=== PATIENT | female | born 1955 | race Caucasian/White ===

== ENCOUNTER 2020-03-27 11:28 | Inpatient (IN) | payer OTHER ==
[2020-03-27 12:23] LABS: Actual Bicarbonate (HCO3a) 22.1 mEq/L (22-28); Analyzer IN Cardio ER; Base Excess (BEa) -5.9 mEq/L (-2.0 to +3.0); CO2 Tension 57.1 mmHg (35.0-45.0); Calcium, Ionized (arterial) 1.09 mmol/L (1.12-1.30); Carboxyhemoglobin (COHb) 0.8 gm% (0.0-3.0); Hemoglobin (Hb) 9.4 g/dL (12.0-16.0); O2 Tension (PaO2), arterial 99.3 mmHg (> 80.0); Potassium - ABG Lab 3.53 mmol/L (3.70-5.30)
[2020-03-27 12:26] LABS: ALV-art Gradient 86.005 mmHg (0-20); Puncture Site RRA; pH, Arterial 7.21 (7.35-7.45)
--- NOTE | 2020-03-27 12:32 | RAD ---
CHEST 1 VIEW: Date: 03/27/2020 HISTORY: Chest pain. COMPARISON: Radiograph dated 06/05/2015. FINDINGS: Heart size is mildly enlarged. No pneumothorax. No significant air space consolidation. No acute osseous abnormality. IMPRESSION: Cardiomegaly and scattered atelectatic change. No definite evidence for pneumonia. POS: [facility]
[2020-03-27 12:53] LABS: Band 8 % (5-11); Eosinophils 1 % (0-10); Hemoglobin 9.9 g/dL (12.0-16.0); Hypochromia SLIGHT = 6-15 cells (100X) (0-5/hpf); Lymphocytes 8 % (21-51); MDiff Complete? YES; Mean Corpuscular HGB CONC 34.3 g/dL (32.0-36.0); Mean Corpuscular Hemoglobin 25.3 pg (27.0-31.0); Mean Corpuscular Volume 73.8 fL (78.0-98.0); Mean Platelet Volume 10.5 fL (7.4-10.4); Metamyelocyte 1 % (0-0); Microcytosis SLIGHT = 6-15 cells (100X) (0-5/hpf); Monocytes 3 % (0-10); Neutrophil 79 % (42-75); Platelet Count 221 thou/uL (130-400); Platelet Morphology Comment Appears Adequate; Polychromasia SLIGHT = 2-3 cells (100X) (0-2/hpf); RBC Distribution Width 20.4 % (11.5-14.5); Red Blood Cell (RBC) Count 3.91 mill/uL (4.20-5.40); White Blood Cell (WBC) Count 16.2 thou/uL (4.8-10.8)
[2020-03-27 12:56] LABS: ALT (SGPT) 18 U/L (8-55); AST (SGOT) 23 U/L (5-34); Albumin 3.6 g/dL (3.4-4.8); Alkaline Phosphatase 93 U/L (40-110); Anion Gap 20 mmol/L (10-20); BUN (Urea Nitrogen) 24 mg/dL (9.8-20.1); Bilirubin, Total 0.5 mg/dL (0.2-1.2); Calc. Creatinine Clearance 0 mL/min (70-130); Calcium 8.3 mg/dL (7.8-10.44); Carbon Dioxide 19 mmol/L (23-31); Chloride 104 mmol/L (98-107); Globulin 3.3 g/dL (2.4-3.5); Glucose 132 mg/dL (80-115); Potassium 4.1 mmol/L (3.5-5.1); Protein, Total 6.9 g/dL (5.8-8.1); Sodium 139 mmol/L (136-145)
[2020-03-27] MEDS ORDERED: Cefepime 2 GM VIAL ONE (13:24)
[2020-03-27 13:39] LABS: Acetaminophen Less than 6.0 mcg/mL (10.0-30.0); Alcohol Less than 10 mg/dL (Less than 10); Salicylate Less than 8.0 mg/dL (15.0-30.0)
[2020-03-27] MEDS ORDERED: Naloxone HCl 0.4 mg/ml Vial ONE (13:44)
[2020-03-27] MEDS ORDERED: Vancomycin 1.5 GRAM/300 ML BAG 1.5 GM in Premix Bag 1 BAG IVPB SCH (13:45)
[2020-03-27] MEDS ORDERED: Norepinephrine 8 MG/0.9% NS 250 ML ONE (13:50)
[2020-03-27 13:53] LABS: Bilirubin 1+ (Negative); Blood, Urine 1+ (Negative); Clarity Turbid (Clear); Glucose, Urine (Dipstick) Normal (Negative); Ketone, Urine Negative (Negative); Leukocyte 75 Leu/uL (Negative); Nitrite Negative (Negative); Protein, Urine (Dipstick) 70 mg/dL (Neg-Trace); Specific Gravity, Urine 1.024 (1.002-1.036); Urobilinogen 3 mg/dL (Less than 2)
[2020-03-27 14:03] LABS: Bacteria/HPF 1+ HPF (None Seen); Yeast-Budding 4+ HPF (None Seen)
[2020-03-27 14:56] LABS: Medtox Reader # READER 4; THC/Cannabinoid Screen Detected (NotDetected); Tricyclic Screen Detected (NotDetected)
[2020-03-27 14:57] LABS: Amphetamine Not Detected (NotDetected); Barbiturates Screen Not Detected (NotDetected); Benzodiazepine Screen Not Detected (NotDetected); Cocaine Metabolite Screen Not Detected (NotDetected); Medtox Control Line Valid? VALID (VALID); Methadone Not Detected (NotDetected); Methamphetamine Not Detected (NotDetected); Opiate Screen Not Detected (NotDetected); Oxycodone Screen Not Detected (NotDetected); Phencyclidine (PCP) Not Detected (NotDetected)
--- NOTE | 2020-03-27 15:04 | CT ---
Exam: Head CT without contrast HISTORY: Altered mental status COMPARISON: none FINDINGS: Hemorrhage: No intraparenchymal hemorrhage or extra-axial hematoma. Brain parenchyma: Cortical cintron-white matter differentiation is preserved. No mass effect or midline shift. Basilar cisterns are patent.Minimal chronic small vessel ischemic changes of the white matter Ventricular system: Ventricles and sulci are patent and symmetric. Calvarium: Intact. 0.6 cm lucent focus in the left temporal calvarium, located within the diploic spa ce. Attenuation coefficient suggests a possible soft tissue lesion Sinuses and mastoid air cells: Adequate aeration. IMPRESSION: 1. No acute process 2. Lucent focus with soft tissue attenuation left calvarium. Etiology is uncertain. The possibility o f a small calvarial metastatic deposit cannot be excluded. Further evaluation whole-body bone scan is recommended, nonemergently
--- NOTE | 2020-03-27 15:25 | CT ---
CT of the chest, abdomen, and pelvis: 03/27/2020 COMPARISON: CT of the chest 03/18/2020 [facility], CT abdomen and pelvis 03/27/2020 HISTORY: Pneumonia, weakness, hypotension TECHNIQUE: Axial CT imaging is obtained at 5 mm intervals through the chest, abdomen, and pelvis with out contrast. Coronal and sagittal reformatted imaging obtained. FINDINGS: Partially imaged coarse calcification noted within the right lobe of the thyroid gland. Binta luation of the viscera, bowel, vascular structures, and for lymphadenopathy is limited without contrast media. The axillary, hilar, and mediastinal regions demonstrate no obvious evidence for lymphadenopathy. The re are a few nonenlarged lymph nodes in the right paratracheal region. There is atherosclerotic calcification of the coronary arteries in the aortic arch. Review of the lung parenchyma demonstrates areas of increased linear interstitial density with superi mposed areas of peripheral airspace disease most prominent within the inferior lateral aspect of the lingula, the inferior posterior aspect of the left lower lobe, and the inferior posterior aspect of the right lower lobe as well as the posterior aspect of the superior segment right lower lobe. When compared to the recent chest CT performed 03/18/2020 at [facility], the parench ymal opacities are diffusely worsened. There is no acute osseous abnormality of the chest. There is multilevel disc space narrowing and ante rior osteophyte formation within the mid and lower thoracic spine. There is prominent posterior osteophyte with associated central canal stenosis at the T10 and T11 levels. No free intraperitoneal air or fluid is seen. Limited assessment of the liver, gallbladder, spleen, p ancreas, adrenal glands, and kidneys demonstrate no acute findings. Limited assessment of the bowel demonstrates no evidence for bowel obstruction or focal bowel inflammatory change. There is multifoca l atherosclerotic calcification of the abdominal aorta and its branches, most prominent in the infrarenal region and involving the arterial structures of the pelvis, not well assessed on noncontra st enhanced imaging. Osseous structures of the abdomen/pelvis demonstrate multilevel lower lumbar spine degenerative mclaughlin e and bilateral degenerative change involving the sacroiliac joints and hips. No worrisome lytic or blastic bone lesion. There is a fatty mass within the lateral aspect of the psoas muscle on the left, best seen on axial i mage 80, measuring 1.7 x 1.7 x 4.5 cm, previously measuring 1.5 x 1.2 x 4.[address] of abdomen and pelvis performed 12/12/2018. IMPRESSION: 1. Extensive interstitial and alveolar opacity, worsened when compared to the outside chest CT, suspi cious for worsening pneumonia. This could be related to Covid pneumonia in the proper clinical setting. 2. Fatty lesion associated with the lateral aspect of the left psoas muscle which has grown slightly when compared to the prior examination. 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 Orthopedic oncology consultation is advised. These results were discussed with Dr. Pérez at 3:20 PM 03/27/2020. Code CR
[2020-03-27] MEDS ORDERED: Ondansetron PF 4 MG/2 ML Vial IVP PRN (17:35)
[2020-03-27] MEDS ORDERED: Guaifenesin DM 100-10/5 ML UDCUP PO PRN (17:35)
[2020-03-27] MEDS ORDERED: Acetaminophen 650 MG Suppository PR PRN (17:35)
[2020-03-27] MEDS ORDERED: Calcium Carbonate 500 MG ChewTAB PO PRN (17:35)
[2020-03-27] MEDS ORDERED: Ondansetron ODT 4 MG TAB PO PRN (17:35)
[2020-03-27] MEDS ORDERED: Acetaminophen 325 MG TAB PO PRN (17:35)
--- NOTE | 2020-03-27 17:39 | PDOC.HHP ---
Hospitalist HPI dyspnea History of Present Illness: Case of an 64y/o male with a pmhx of morbid obesity, sleep apnea, DM htn hypothyroidism and copd quitted smoking 1 month ago who comes to hospital due to sob and weakness. The patient was recently in [facility] for pneumonia. She was going to be discharged the next day which would have been today but she left AMA yesterday because she did not like the care that she was receiving there. The patient was discharged on oxygen 2 L. The patient's had turned it up to 6 L today. The patient had been more somnolent and so they did contact an ambulance. The patient is very somnolent and has difficulty with conversing due to this. She is unable to answer any questions at this time. Patient was hypotensive for EMS in the 80s and they did give fluid bolus. chest ct showed a pattern concerning for covid 19, hospitalist was called for further evaluation and management. during my evaluation patient had significanlty improved, she was alert ox 3 and eating, pt denies any fever chills n/v diarrhea does refer some mild sob generalize weakness and hypotension Allergies/Adverse Reactions: Allergy/AdvReac Type Severity Reaction Status Date / Time No Known Allergies Allergy Verified 05/20/19 20:23 Home Medications: Medication Instructions Recorded Confirmed Type Albuterol Sulfate [Proair HFA] 2 puff INH Q4HR PRN 12/12/18 12/12/18 History Amitriptyline HCl 25 mg PO DAILY 12/12/18 12/12/18 History Baclofen 10 mg PO BID 12/12/18 12/12/18 History Furosemide 20 mg PO DAILY 12/12/18 12/12/18 History Hydrochlorothiazide 25 mg PO DAILY 12/12/18 12/12/18 History Lisinopril 40 ng PO DAILY 12/12/18 12/12/18 History Meloxicam 15 mg PO HS 12/12/18 12/12/18 History Montelukast Sodium 10 mg PO DAILY 12/12/18 12/12/18 History Omeprazole 40 mg PO DAILY 12/12/18 12/12/18 History Sertraline HCl 100 mg PO DAILY 12/12/18 12/12/18 History Simvastatin [Zocor] 20 mg PO DAILY 12/12/18 12/12/18 History traMADol HCl [Tramadol HCl] 50 mg PO BID 12/12/18 12/12/18 History Gabapentin 1,200 mg PO TID 12/13/18 12/13/18 History Past History: PMHx: as above PSHx: c section / carpal tunnel FHx: htn Social: smoker quitted 1m/a, cannabis use, denies alcohol Hospitalist HPI ROS All other systems reviewed; all pertinent +/- noted in HPI/Subj Hospitalist Exam General Appearance: NAD, awake alert Eye: PERRL, anicteric sclera ENT: normocephalic atraumatic, no oropharyngeal lesions Neck: supple, symmetric, no JVD Heart: RRR, no murmur, no gallops Respiratory: CTAB, no wheezes, no rales Gastrointestinal: soft, non-tender, non-distended Extremities: no cyanosis, no clubbing, no edema Neurological: cranial nerve grossly intact, normal sensation to touch Musculoskeletal: normal tone, normal strength, no muscle wasting Psychiatric: normal affect, normal behavior, A&O x 3 Hospitalist Results Result Diagrams: 03/27/20 12:08 03/27/20 12:08 Lab results: Laboratory Last Values WBC 16.2 thou/uL (4.8-10.8) H 03/27/20 12:08 RBC 3.91 mill/uL (4.20-5.40) L 03/27/20 12:08 Hgb 9.9 g/dL (12.0-16.0) L 03/27/20 12:08 Hct 28.9 % (36.0-47.0) L 03/27/20 12:08 MCV 73.8 fL (78.0-98.0) L 03/27/20 12:08 MCH 25.3 pg (27.0-31.0) L 03/27/20 12:08 MCHC 34.3 g/dL (32.0-36.0) 03/27/20 12:08 RDW 20.4 % (11.5-14.5) H 03/27/20 12:08 Plt Count 221 thou/uL (130-400) 03/27/20 12:08 MPV 10.5 fL (7.4-10.4) H 03/27/20 12:08 Neutrophils % (Manual) 79 % (42-75) H 03/27/20 12:08 Band Neuts % (Manual) 8 % (5-11) 03/27/20 12:08 Lymphocytes % (Manual) 8 % (21-51) L 03/27/20 12:08 Monocytes % (Manual) 3 % (0-10) 03/27/20 12:08 Eosinophils % (Manual) 1 % (0-10) 03/27/20 12:08 Metamyelocytes % (Man) 1 % (0-0) H 03/27/20 12:08 Hypochromia SLIGHT = 6-15 cells (100X) (0-5/hpf) 03/27/20 12:08 Plt Morphology Comment Appears Adequate 03/27/20 12:08 Polychromasia SLIGHT = 2-3 cells (100X) (0-2/hpf) 03/27/20 12:08 Microcytosis SLIGHT = 6-15 cells (100X) (0-5/hpf) 03/27/20 12:08 Specimen Type ARTERIAL 03/27/20 12:20 Puncture Site RRA 03/27/20 12:20 Bicarbonate Actual 22.1 mEq/L (22-28) 03/27/20 12:20 ABG pH 7.21 (7.35-7.45) L* 03/27/20 12:20 ABG pCO2 57.1 mmHg (35.0-45.0) H 03/27/20 12:20 ABG pO2 99.3 mmHg (> 80.0) H 03/27/20 12:20 ABG O2 Sat (Measured) 95.9 % (94.0-98.0) 03/27/20 12:20 ABG O2 Content 12.7 vol% (18.0-21.0) L 03/27/20 12:20 ABG Base Excess -5.9 mEq/L (-2.0 to +3.0) L 03/27/20 12:20 ABG Hematocrit 28.0 % (36.0-47.0) L 03/27/20 12:20 ABG Hemoglobin 9.4 g/dL (12.0-16.0) L 03/27/20 12:20 ABG Oxyhemoglobin 94.5 % (94.0-98.0) 03/27/20 12:20 ABG Carboxyhemoglobin 0.8 gm% (0.0-3.0) 03/27/20 12:20 ABG Methemoglobin 0.70 gm% (0.04-1.52) 03/27/20 12:20 ABG Deoxyhemoglobin 4.0 % (0.0-2.9) H 03/27/20 12:20 Onel Test POSITIVE 03/27/20 12:20 A-a O2 Gradient 86.005 mmHg (0-20) H 03/27/20 12:20 Sodium 136 mmol/L (135-148) 03/27/20 12:20 Potassium 3.53 mmol/L (3.70-5.30) L 03/27/20 12:20 Chloride 107 mmol/L (98-106) H 03/27/20 12:20 Ionized Calcium 1.09 mmol/L (1.12-1.30) L 03/27/20 12:20 Mode of Support NC 03/27/20 12:20 Inspired O2 36 % 03/27/20 12:20 Sodium 139 mmol/L (136-145) 03/27/20 12:08 Potassium 4.1 mmol/L (3.5-5.1) 03/27/20 12:08 Chloride 104 mmol/L (98-107) 03/27/20 12:08 Carbon Dioxide 19 mmol/L (23-31) L 03/27/20 12:08 Anion Gap 20 mmol/L (10-20) 03/27/20 12:08 BUN 24 mg/dL (9.8-20.1) H 03/27/20 12:08 Creatinine 1.92 mg/dL (0.6-1.1) H 03/27/20 12:08 Estimated GFR (MDRD) 26 03/27/20 12:08 Glucose 132 mg/dL (80-115) H 03/27/20 12:08 Lactic Acid 1.6 mmol/L (0.5-2.2) 03/27/20 12:08 Calcium 8.3 mg/dL (7.8-10.44) 03/27/20 12:08 Total Bilirubin 0.5 mg/dL (0.2-1.2) 03/27/20 12:08 AST 23 U/L (5-34) 03/27/20 12:08 ALT 18 U/L (8-55) 03/27/20 12:08 Alkaline Phosphatase 93 U/L (40-110) 03/27/20 12:08 Troponin I 0.021 ng/mL (< 0.028) 03/27/20 12:08 Serum Total Protein 6.9 g/dL (5.8-8.1) 03/27/20 12:08 Albumin 3.6 g/dL (3.4-4.8) 03/27/20 12:08 Globulin 3.3 g/dL (2.4-3.5) 03/27/20 12:08 Albumin/Globulin Ratio 1.1 g/dL (1.2-2.2) L 03/27/20 12:08 Lipase 32 U/L (8-78) 03/27/20 12:04 Procalcitonin 0.18 ng/mL 03/27/20 12:05 Urine Color Yellow (Yellow) 03/27/20 13:27 Urine Clarity Turbid (Clear) A 03/27/20 13:27 Urine pH 5.0 (5.0-9.0) 03/27/20 13:27 Ur Specific [place] 1.024 (1.002-1.036) 03/27/20 13:27 Urine Protein 70 mg/dL (Neg-Trace) A 03/27/20 13:27 Urine Glucose (UA) Normal mg/dL (Negative) 03/27/20 13:27 Urine Ketones Negative mg/dL (Negative) 03/27/20 13:27 Urine Blood 1+ (Negative) A 03/27/20 13:27 Urine Nitrite Negative (Negative) 03/27/20 13:27 Urine Bilirubin 1+ (Negative) A 03/27/20 13:27 Urine Urobilinogen 3 mg/dL (Less than 2) A 03/27/20 13:27 Ur Leukocyte Esterase 75 Yudith/uL (Negative) A 03/27/20 13:27 Urine RBC 7-10 HPF (0-3) A 03/27/20 13:27 Urine WBC 7-10 HPF (0-3) A 03/27/20 13:27 Ur Squamous Epith Cells 7-10 HPF (0-3) A 03/27/20 13:27 Urine Bacteria 1+ HPF (None Seen) A 03/27/20 13:27 Granular Casts 0-3 LPF (None Seen) A 03/27/20 13:27 Urine Yeast (Budding) 4+ HPF (None Seen) A 03/27/20 13:27 Salicylates Less than 8.0 mg/dL (15.0-30.0) L 03/27/20 12:04 Urine Opiates Screen Not Detected (NotDetected) 03/27/20 13:20 Ur Oxycodone Screen Not Detected (NotDetected) 03/27/20 13:20 Urine Methadone Screen Not Detected (NotDetected) 03/27/20 13:20 Ur Propoxyphene Screen Not Detected (NotDetected) 03/27/20 13:20 Acetaminophen Less than 6.0 mcg/mL (10.0-30.0) L 03/27/20 12:04 Ur Barbiturates Screen Not Detected (NotDetected) 03/27/20 13:20 Ur Tricyclics Screen Detected (NotDetected) H 03/27/20 13:20 Ur Phencyclidine Scrn Not Detected (NotDetected) 03/27/20 13:20 Ur Amphetamines Screen Not Detected (NotDetected) 03/27/20 13:20 U Methamphetamines Scrn Not Detected (NotDetected) 03/27/20 13:20 U Benzodiazepines Scrn Not Detected (NotDetected) 03/27/20 13:20 U Cocaine Metab Screen Not Detected (NotDetected) 03/27/20 13:20 U Cannabinoids Screen Detected (NotDetected) H 03/27/20 13:20 Drug Screen Comment () 03/27/20 13:20 Plasma Alcohol Less than 10 mg/dL (Less than 10) 03/27/20 12:04 Hospitalist H&P A/P (1) Sepsis Code(s): A41.9 - SEPSIS, UNSPECIFIED ORGANISM Status: Acute (2) Pneumonia due to COVID-19 virus Code(s): U07.1 - COVID-19; J12.82 - PNEUMONIA DUE TO CORONAVIRUS DISEASE 2019 Status: Acute (3) Hypothyroidism Code(s): E03.9 - HYPOTHYROIDISM, UNSPECIFIED Status: Acute (4) Diabetes Code(s): E11.9 - TYPE 2 DIABETES MELLITUS WITHOUT COMPLICATIONS Status: Acute (5) Hypertension Code(s): I10 - ESSENTIAL (PRIMARY) HYPERTENSION Status: Acute (6) UTI (urinary tract infection) Status: Acute Qualifiers: Urinary tract infection type: acute cystitis Hematuria presence: without hematuria Qualified Code(s): N30.00 - Acute cystitis without hematuria (7) JAN (acute kidney injury) Code(s): N17.9 - ACUTE KIDNEY FAILURE, UNSPECIFIED Status: Acute (8) COPD exacerbation Code(s): J44.1 - CHRONIC OBSTRUCTIVE PULMONARY DISEASE W (ACUTE) EXACERBATION Status: Acute Plan: Case of an 64y.o female who presents with sepsis likely secondary to covid pneumonia sepsis 19 pneumonia - covid test results pending - cta concerning for covid 19 - pt w recent hospitalization for pna, left ama - will start vanc + cefepime - decadron ivd - vitmin c d zinc - isolation precaution - dvt prophylaxis - f/u inflammation markers jan - marked increase in creatinine from previous admission - will tx w ivfs 1xkg - f/u renal function and u/o htn - patient arrived hypotensive will hold for now hld - continue home meds dm - ss+acc copd exacerbaton - secondary to pna 19 - on steroids - 02 supplementation - hypercapnic, in the 60s, she does have a hx of copd and sleep apnea, this might no be far off from her base - pt seems to be back to her neurological base after sepsis tx, none the less have low threshold for starting bipap tx uti - u/a consistent with uti - f/u cultures - should be covered w current abx
[2020-03-27] MEDS ORDERED: Dextrose 5% in Water 1,000 ML IV PRN (18:45)
[2020-03-27] MEDS ORDERED: Dextrose 50% Abboject 50 ML SYRINGE SLOW IVP PRN (18:45)
[2020-03-27] MEDS: Sodium Chloride 0.9% 1,000 ML IV SCH (21:05)
[2020-03-27 22:34] LABS: SARS-CoV-2 PCR by NAA Not Detected (NotDetected)
[2020-03-28 00:22] VITALS: BMI 41.5
[2020-03-28] MEDS: Cefepime 2 GM in Sodium Chloride 0.9% 100 ML IVPB SCH ×2 (01:10→14:21)
[2020-03-28 04:39] LABS: ALT (SGPT) 13 U/L (8-55); AST (SGOT) 17 U/L (5-34); Albumin 2.9 g/dL (3.4-4.8); Alkaline Phosphatase 74 U/L (40-110); Anion Gap 14 mmol/L (10-20); BUN (Urea Nitrogen) 19 mg/dL (9.8-20.1); Bilirubin, Total 0.4 mg/dL (0.2-1.2); Calc. Creatinine Clearance 112 mL/min (70-130); Calcium 7.8 mg/dL (7.8-10.44); Carbon Dioxide 19 mmol/L (23-31); Chloride 108 mmol/L (98-107); Globulin 2.9 g/dL (2.4-3.5); Glucose 116 mg/dL (80-115); Potassium 3.9 mmol/L (3.5-5.1); Protein, Total 5.8 g/dL (5.8-8.1); Sodium 137 mmol/L (136-145)
[2020-03-28 05:32] LABS: Hemoglobin 8.7 g/dL (12.0-16.0); Mean Corpuscular HGB CONC 29.8 g/dL (32.0-36.0); Mean Corpuscular Volume 73.9 fL (78.0-98.0); Mean Platelet Volume 10.2 fL (7.4-10.4); Platelet Count 202 thou/uL (130-400); RBC Distribution Width 20.5 % (11.5-14.5); Red Blood Cell (RBC) Count 3.94 mill/uL (4.20-5.40); White Blood Cell (WBC) Count 17.2 thou/uL (4.8-10.8)
[2020-03-28] MEDS: Sodium Chloride 0.9% 1,000 ML IV SCH (06:06)
[2020-03-28] MEDS ORDERED: Non-Formulary Item 1 EACH (Albuterol Sulfate [Proair Hfa] 8.5 GM Hfa.Aer.Ad) INH PRN (08:50)
[2020-03-28] MEDS ORDERED: Fluticasone Propionate Nasal Spray 16 gm Bottle NASAL PRN (08:50)
[2020-03-28] MEDS ORDERED: Furosemide 40 MG/4 ML VIAL SLOW IVP SCH (09:00)
[2020-03-28] MEDS ORDERED: FLU VACC QS2020-21(6MOS UP)/PF 60 MCG/0.5 ML SYRINGE IM ONE (09:00)
[2020-03-28] MEDS: traMADol HCl 50 MG TAB PO SCH ×2 (09:04→20:50)
[2020-03-28] MEDS: Gabapentin 300 MG CAP PO SCH ×3 (09:05→20:51)
[2020-03-28] MEDS: Lisinopril 20 MG TAB PO SCH ×2 (09:06→09:12)
[2020-03-28] MEDS: Amitriptyline HCl 25 MG TAB PO SCH (09:06)
[2020-03-28] MEDS: Ascorbic Acid 500 mg Chewable Tablet PO SCH (09:08)
[2020-03-28] MEDS: Zinc Sulfate 220 MG CAP PO SCH (09:08)
[2020-03-28] MEDS: Montelukast Sodium 10 mg Tablet PO SCH (09:08)
[2020-03-28] MEDS: Cholecalciferol (Vitamin D3) 400 UNITS TAB PO SCH (09:08)
[2020-03-28] MEDS: Enoxaparin Sodium 40 MG/0.4 ML SYRINGE SC SCH (09:08)
[2020-03-28] MEDS: Dexamethasone 4 mg/ml Vial SLOW IVP SCH (09:09)
[2020-03-28] MEDS: HumaLOG 300 UNITS/3 ML VIAL SC PRN ×2 (11:42→16:48)
[2020-03-28] MEDS ORDERED: Vancomycin 1 GM in Premix Bag 1 BAG IVPB SCH (15:00)
[2020-03-28 15:23] LABS: Vancomycin, Random 10.4 ug/mL (See Comment)
--- NOTE | 2020-03-28 16:19 | PDOC.HOSPP ---
- Subjective Encounter Date: 03/28/20 Encounter Time: 10:30 Subjective: Patient up in bed no complaints of shortness of breath - Objective Vital Signs & Weight: Vital Signs (12 hours) Temp Pulse Pulse Pulse Resp BP BP 03/28/20 15:19 98.0 F 95 16 03/28/20 13:40 96 92 121/58 L 118/56 L 03/28/20 11:34 97.8 F 94 16 03/28/20 07:41 98.8 F 85 16 BP Pulse Ox 03/28/20 15:19 129/60 98 03/28/20 13:40 03/28/20 11:34 129/59 L 92 L 03/28/20 07:41 116/56 L 100 Weight Admit Weight 242 lb 5 oz Weight 242 lb 5 oz I&O: 03/27/20 03/28/20 03/29/20 06:59 06:59 06:59 Intake Total 1570 Output Total 950 Balance 620 Result Diagrams: 03/28/20 05:11 03/28/20 04:06 Additional Labs: Accuchecks 03/28/20 03/28/20 10:37 05:52 POC Glucose 224 H 119 H Hospitalist ROS - Review of Systems Cardiovascular: denies: chest pain, palpitations, orthopnea, paroxysmal noc. dyspnea, edema, light headedness, other Gastrointestinal: denies: nausea, vomiting, abdominal pain, diarrhea, cons tipation, melena, hematochezia, other Genitourinary: denies: dysuria, frequency, incontinence, hematuria, retention, other - Medication Medications: Active Medications Generic Name Dose Route Start Last Admin Trade Name Oz PRN Reason Stop Dose Admin Amitriptyline HCl 25 mg 03/28/20 09:00 03/28/20 09:06 Amitriptyline Hcl 25 Mg Tab PO 25 mg DAILY ROMEO Administration Ascorbic Acid 1,000 mg 03/28/20 09:00 03/28/20 09:08 Ascorbic Acid 500 Mg Chewable Tablet PO 1,000 mg DAILY ROMEO Administration Cholecalciferol 400 units 03/28/20 09:00 03/28/20 09:08 Cholecalciferol (Vitamin D3) 400 Units Tab PO 400 units DAILY ROMEO Administration Dexamethasone 6 mg 03/28/20 09:00 03/28/20 09:09 Dexamethasone 4 Mg/Ml Vial SLOW IVP 6 mg DAILY ROMEO Administration Enoxaparin Sodium 40 mg 03/28/20 09:00 03/28/20 09:08 Enoxaparin Sodium 40 Mg/0.4 Ml Syringe SC 40 mg 0900 ROMEO Administration Cefepime HCl 2 gm/ Sodium 100 mls @ 200 mls/hr 03/28/20 02:00 03/28/20 14:21 Chloride IVPB 100 mls 0200,1400 ROMEO Administration Insulin Human Lispro 0 units 03/27/20 18:45 03/28/20 11:42 Humalog 300 Units/3 Ml Vial SC 3 unit .MILD SLIDING SCALE PRN Administration Mild Correctional Scale Lisinopril 40 mg 03/28/20 09:00 03/28/20 09:12 Lisinopril 20 Mg Tab PO Not Given DAILY ROMOE Montelukast Sodium 10 mg 03/28/20 09:00 03/28/20 09:08 Montelukast Sodium 10 Mg Tablet PO 10 mg DAILY ROMEO Administration Pantoprazole Sodium 40 mg 03/28/20 09:00 03/28/20 09:06 Pantoprazole 40 Mg Tab PO 40 mg DAILY ROMEO Administration Sertraline HCl 200 mg 03/28/20 09:00 03/28/20 09:07 Sertraline Hcl 100 Mg Tab PO 200 mg DAILY ROMEO Administration Sodium Chloride 10 ml 03/27/20 21:00 03/28/20 09:09 Flush - Normal Saline 10 Ml Syringe IVF 10 ml Q12HR ROMEO Administration Tramadol HCl 50 mg 03/28/20 09:00 03/28/20 09:04 Tramadol Hcl 50 Mg Tab PO 50 mg BID ROMEO Administration Zinc Sulfate 220 mg 03/28/20 09:00 03/28/20 09:08 Zinc Sulfate 220 Mg Cap PO 220 mg DAILY ROMEO Administration Hospitalist Exam Vitals: Vital Signs (12 hours) Temp Pulse Pulse Pulse Resp BP BP 03/28/20 15:19 98.0 F 95 16 03/28/20 13:40 96 92 121/58 L 118/56 L 03/28/20 11:34 97.8 F 94 16 03/28/20 07:41 98.8 F 85 16 BP Pulse Ox 03/28/20 15:19 129/60 98 03/28/20 13:40 03/28/20 11:34 129/59 L 92 L 03/28/20 07:41 116/56 L 100 Weight Admit Weight 242 lb 5 oz Weight 242 lb 5 oz Neck: supple Heart: RRR Respiratory: no wheezes, no rales Gastrointestinal: soft, normal bowel sounds Gastrointestinal - other findings: Obese Extremities: 1+ LE edema Hosp A/P (1) Acute hypercapnic respiratory failure Code(s): J96.02 - ACUTE RESPIRATORY FAILURE WITH HYPERCAPNIA Status: Acute (2) Pneumonia Code(s): J18.9 - PNEUMONIA, UNSPECIFIED ORGANISM Status: Acute (3) COPD (chronic obstructive pulmonary disease) Status: Acute (4) Diabetes Code(s): E11.9 - TYPE 2 DIABETES MELLITUS WITHOUT COMPLICATIONS Status: Acute (5) Hypertension Code(s): I10 - ESSENTIAL (PRIMARY) HYPERTENSION Status: Acute - Plan Given 1 dose of Lasix. We will continue IV antibiotics. We will get physical therapy. We will stop antibiotics. We will also get echocardiogram. Patient has a history of smoking she quit about a month ago. She smokes about 2 or 3 packs a day. We will check inflammatory markers. Pulmonology consulted. Spoke with oncology who recommended follow-up as an outpatient for the findings on the CAT scan.
[2020-03-28] MEDS: Atorvastatin Calcium 10 MG TAB PO SCH (20:51)
[2020-03-28] MEDS: Ipratropium Bromide 2.5 ml Neb NEB PRN (21:12)
[2020-03-28] MEDS ORDERED: VANCOMYCIN 1.75 GM/350 ML BAG 1.75 GM in Premix Bag 1 BAG IVPB SCH (23:00)
--- NOTE | 2020-03-28 23:58 | CON ---
DATE OF CONSULTATION: 03/28/2020 HISTORY OF PRESENT ILLNESS: Marian Palma is a 64-year-old female, who is admitted yesterday. She tells me she was recently in the hospital in [place]. She said she went in with extremely swollen legs and was placed on Lasix. She said she could not control her urination, was wetting the bed constantly. She said she was verbally chastised for losing her urine in bed, so she decided to leave and go home, hoping to stay home. The day of discharge, she got up in the morning and said that she was having difficulty standing and felt like she was going to pass out. An ambulance was called. Apparently, her blood pressure was in the 80s. She said she had a cardiac workup while she was in [place] but does not know the results of any tests. PAST MEDICAL HISTORY: Remarkable for hypertension, , carpal tunnel surgery. She tells me she had a sleep study done years ago but did not show sleep apnea. She knows what sleep apnea is, she says because her has it and sleeps with CPAP. She also has diabetes, hypertension, hypothyroidism, and she has been told she has COPD. It is unclear if this diagnosis was made because she smoked or actually with true pulmonary function tests and documented an obstructive defect. MEDICATIONS: Prior to admission, she is on, 1. Albuterol. 2. Elavil. 3. Baclofen. 4. Lasix plus hydrochlorothiazide. 5. Lisinopril. 6. Meloxicam. 7. Singulair. 8. Omeprazole. 9. Zoloft. 10. Zocor. 11. Tramadol. 12. Gabapentin. She sees Dr. Dorsey in [place]. REVIEW OF SYSTEMS: Otherwise negative. She actually says she feels pretty good. She denies cough, fever. PHYSICAL EXAMINATION: VITAL SIGNS: She is afebrile. Heart rate is in the 90s, respiratory rates in the teens, oximetry is 92% on 2 L, blood pressure 121/58. HEAD AND NECK: Unremarkable. LUNGS: Completely clear. HEART: Regular rhythm. S1 and S2 are distant. ABDOMEN: Soft and nontender. EXTREMITIES: Without clubbing, cyanosis, or edema. 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 She does admit that she thinks she has gained a lot of weight since she had her sleep study. IMPRESSION: 1. Probable sleep apnea. 2. ? cor pulmonale leading to her lower extremity edema or simply edema secondary to obesity. 3. Morbid obesity with BMI of 41. 4. Anemia with decreased mean corpuscular volume. It is unclear whether or not she has ever had a screening colonoscopy and unclear what her baseline hemoglobin is. This would be consistent with iron deficiency possibly. 5. Mild metabolic acidosis, it is mainly hyperchloremic. I suspect this is all secondary to volume replenishment on top of her Lasix. 6. Hypoalbuminemia with minimal protein in her urine. 7. Chest CT showing posterior increase in interstitial markings, more consistent with compressive atelectasis in my opinion. This CT is not classic for pneumonia, but I suppose she could have had a component of pneumonia that was treated while she was in the hospital in [place]. It also could be a pattern consistent with resolving pulmonary edema. In any event, I do not feel that there are any acute illnesses here. I suspect she was over diuresed in [place] and needs more filling pressure to avoid hypotension. I certainly would not aggressively diurese her based on lower extremity edema, given her size. I do not see any indication for any type of pulmonary intervention at this point. We will sign off. ADDENDUM: There is a fatty lesion in her left psoas muscle on her abdomen CT, not really clear to me why she had an abdomen CT, but this was seen in 2019. This is very slightly larger. A liposarcoma I am sure would have grown much faster than this, but this will definitely need to be followed by her primary care physician in my opinion and worked up if growth continues. Head imaging would be helpful. I would suspect that this would light up if this were a liposarcoma since it has fat density and is growing. If it is simply a psoas muscle like, I would suspect it would be on PET imaging. Again, this is not done as an inpatient. This is a 50 min consult with greater than 50% of the time spent on the unit with coordination of care. Job ID: [id number] [facility] HOSPITALAgustin
[2020-03-29] MEDS: Cefepime 2 GM in Sodium Chloride 0.9% 100 ML IVPB SCH (02:45)
[2020-03-29 08:28] LABS: #Eosinphils 0.1 thou/uL (0.0-0.7); #Lymphocytes 0.9 thou/uL (1.20-3.40); #Monocytes 0.5 thou/uL (0.11-0.59); #Neutrophils 10.6 thou/uL (1.40-6.50); %Eosinophils 0.5 % (0.0-10.0); %Lymphocytes 7.2 % (21.0-51.0); %Neutrophils 88.2 % (42.0-75.0); Hemoglobin 8.5 g/dL (12.0-16.0); Mean Corpuscular HGB CONC 31.6 g/dL (32.0-36.0); Mean Corpuscular Hemoglobin 23.5 pg (27.0-31.0); Mean Corpuscular Volume 74.2 fL (78.0-98.0); Mean Platelet Volume 9.8 fL (7.4-10.4); Platelet Count 207 thou/uL (130-400); RBC Distribution Width 19.8 % (11.5-14.5); Red Blood Cell (RBC) Count 3.64 mill/uL (4.20-5.40)
[2020-03-29 08:46] LABS: ALT (SGPT) 11 U/L (8-55); AST (SGOT) 12 U/L (5-34); Albumin 3.1 g/dL (3.4-4.8); Alkaline Phosphatase 76 U/L (40-110); Anion Gap 11 mmol/L (10-20); BUN (Urea Nitrogen) 15 mg/dL (9.8-20.1); Bilirubin, Total 0.4 mg/dL (0.2-1.2); Calc. Creatinine Clearance 128 mL/min (70-130); Calcium 8.7 mg/dL (7.8-10.44); Carbon Dioxide 27 mmol/L (23-31); Chloride 103 mmol/L (98-107); Globulin 3.3 g/dL (2.4-3.5); Glucose 140 mg/dL (80-115); Protein, Total 6.4 g/dL (5.8-8.1); Sodium 137 mmol/L (136-145)
[2020-03-29] MEDS: Gabapentin 300 MG CAP PO SCH ×2 (09:32→21:52)
[2020-03-29] MEDS: Cholecalciferol (Vitamin D3) 400 UNITS TAB PO SCH (09:32)
[2020-03-29] MEDS: Ascorbic Acid 500 mg Chewable Tablet PO SCH (09:33)
[2020-03-29] MEDS: Lisinopril 20 MG TAB PO SCH (09:34)
[2020-03-29] MEDS: Zinc Sulfate 220 MG CAP PO SCH (09:34)
[2020-03-29] MEDS: Amitriptyline HCl 25 MG TAB PO SCH (09:34)
[2020-03-29] MEDS: Montelukast Sodium 10 mg Tablet PO SCH (09:34)
[2020-03-29] MEDS: Enoxaparin Sodium 40 MG/0.4 ML SYRINGE SC SCH (09:35)
[2020-03-29] MEDS: Dexamethasone 4 mg/ml Vial SLOW IVP SCH (09:35)
[2020-03-29] MEDS: traMADol HCl 50 MG TAB PO SCH ×2 (09:35→21:50)
[2020-03-29] MEDS: HumaLOG 300 UNITS/3 ML VIAL SC PRN ×2 (12:46→17:20)
--- NOTE | 2020-03-29 12:52 | PDOC.HOSPP ---
- Subjective Encounter Date: 03/29/20 Encounter Time: 10:30 Subjective: pt up in bed no complains - Objective Vital Signs & Weight: Vital Signs (12 hours) Temp Pulse Resp BP Pulse Ox 03/29/20 12:00 98.6 F 82 16 139/66 93 L 03/29/20 08:00 98.4 F 73 16 153/65 H 92 L 03/29/20 04:00 97.9 F 80 18 133/63 99 Weight Admit Weight 242 lb 5 oz Weight 242 lb 2 oz I&O: 03/28/20 03/29/20 03/30/20 06:59 06:59 06:59 Intake Total 1570 240 240 Output Total 950 625 Balance 620 -385 240 Result Diagrams: 03/29/20 08:11 03/29/20 08:11 Additional Labs: Accuchecks 03/29/20 03/29/20 03/28/20 11:08 06:16 20:07 POC Glucose 175 H 135 H 225 H 03/28/20 16:43 POC Glucose 193 H Hospitalist ROS - Review of Systems Cardiovascular: denies: chest pain, palpitations, orthopnea, paroxysmal noc. dyspnea, edema, light headedness, other Gastrointestinal: denies: nausea, vomiting, abdominal pain, diarrhea, constipati on, melena, hematochezia, other - Medication Medications: Active Medications Generic Name Dose Route Start Last Admin Trade Name Freq PRN Reason Stop Dose Admin Amitriptyline HCl 25 mg 03/28/20 09:00 03/29/20 09:34 Amitriptyline Hcl 25 Mg Tab PO 25 mg DAILY ROMEO Administration Ascorbic Acid 1,000 mg 03/28/20 09:00 03/29/20 09:33 Ascorbic Acid 500 Mg Chewable Tablet PO 1,000 mg DAILY ROMEO Administration Atorvastatin Calcium 10 mg 03/28/20 21:00 03/28/20 20:51 Atorvastatin Calcium 10 Mg Tab PO 10 mg HS ROMEO Administration Cholecalciferol 400 units 03/28/20 09:00 03/29/20 09:32 Cholecalciferol (Vitamin D3) 400 Units Tab PO 400 units DAILY ROMEO Administration Enoxaparin Sodium 40 mg 03/28/20 09:00 03/29/20 09:35 Enoxaparin Sodium 40 Mg/0.4 Ml Syringe SC 40 mg 09 ROMEO Administration Gabapentin 1,200 mg 03/28/20 21:00 03/29/20 09:32 Gabapentin 300 Mg Cap PO 1,200 mg BID ROMEO Administration Insulin Human Lispro 0 units 03/27/20 18:45 03/29/20 12:46 Humalog 300 Units/3 Ml Vial SC 2 unit .MILD SLIDING SCALE PRN Administration Mild Correctional Scale Ipratropium [place] 2.5 ml 03/28/20 08:57 03/28/20 21:12 Ipratropium [place] 2.5 Ml Neb NEB 2.5 ml BIDPRN PRN Administration SOB &/or Wheezing Lisinopril 40 mg 03/28/20 09:00 03/29/20 09:34 Lisinopril 20 Mg Tab PO 40 mg DAILY ROMEO Administration Montelukast Sodium 10 mg 03/28/20 09:00 03/29/20 09:34 Montelukast Sodium 10 Mg Tablet PO 10 mg DAILY ROMEO Administration Pantoprazole Sodium 40 mg 03/28/20 09:00 03/29/20 09:34 Pantoprazole 40 Mg Tab PO 40 mg DAILY ROMEO Administration Sertraline HCl 200 mg 03/28/20 09:00 03/29/20 09:34 Sertraline Hcl 100 Mg Tab PO 200 mg DAILY ROMEO Administration Sodium Chloride 10 ml 03/27/20 21:00 03/29/20 09:35 Flush - Normal Saline 10 Ml Syringe IVF 10 ml Q12HR ROMEO Administration Tramadol HCl 50 mg 03/28/20 09:00 03/29/20 09:35 Tramadol Hcl 50 Mg Tab PO 50 mg BID ROMEO Administration Zinc Sulfate 220 mg 03/28/20 09:00 03/29/20 09:34 Zinc Sulfate 220 Mg Cap PO 220 mg DAILY ROMEO Administration Hospitalist Exam Vitals: Vital Signs (12 hours) Temp Pulse Resp BP Pulse Ox 03/29/20 12:00 98.6 F 82 16 139/66 93 L 03/29/20 08:00 98.4 F 73 16 153/65 H 92 L 03/29/20 04:00 97.9 F 80 18 133/63 99 Weight Admit Weight 242 lb 5 oz Weight 242 lb 2 oz Neck: supple Heart: RRR Respiratory: no wheezes, no rales, no ronchi Gastrointestinal: soft, normal bowel sounds Extremities: no edema Hosp A/P (1) Acute hypercapnic respiratory failure Code(s): J96.02 - ACUTE RESPIRATORY FAILURE WITH HYPERCAPNIA Status: Acute (2) Pneumonia Code(s): J18.9 - PNEUMONIA, UNSPECIFIED ORGANISM Status: Acute (3) COPD (chronic obstructive pulmonary disease) Status: Acute (4) Diabetes Code(s): E11.9 - TYPE 2 DIABETES MELLITUS WITHOUT COMPLICATIONS Status: Acute (5) Hypertension Code(s): I10 - ESSENTIAL (PRIMARY) HYPERTENSION Status: Acute - Plan Given 1 dose of Lasix. We will continue IV antibiotics. We will get physical therapy. We will stop antibiotics. We will also get echocardiogram. Patient has a history of smoking she quit about a month ago. She smokes about 2 or 3 packs a day. We will check inflammatory markers. Pulmonology consulted. Spoke with oncology who recommended follow-up as an outpatient for the findings on the CAT scan. 03/29 will switch abx to levaquin and monitor her for one more night. she does not want to go to snf. echo pending. if ok stable will discharge pt home in am.
[2020-03-29] MEDS: Atorvastatin Calcium 10 MG TAB PO SCH (21:50)
[2020-03-30] MEDS: Ipratropium Bromide 2.5 ml Neb NEB PRN
[2020-03-30 04:25] LABS: #Lymphocytes 1.1 thou/uL (1.20-3.40); #Monocytes 0.5 thou/uL (0.11-0.59); #Neutrophils 9.7 thou/uL (1.40-6.50); %Eosinophils 0.3 % (0.0-10.0); %Monocytes 4.2 % (0.0-10.0); %Neutrophils 85.5 % (42.0-75.0); Hemoglobin 8.3 g/dL (12.0-16.0); Mean Corpuscular HGB CONC 30.4 g/dL (32.0-36.0); Mean Corpuscular Volume 72.2 fL (78.0-98.0); Mean Platelet Volume 10.3 fL (7.4-10.4); Platelet Count 241 thou/uL (130-400); RBC Distribution Width 19.9 % (11.5-14.5); Red Blood Cell (RBC) Count 3.78 mill/uL (4.20-5.40); White Blood Cell (WBC) Count 11.4 thou/uL (4.8-10.8)
[2020-03-30 04:59] LABS: ALT (SGPT) 11 U/L (8-55); AST (SGOT) 12 U/L (5-34); Albumin 3.1 g/dL (3.4-4.8); Alkaline Phosphatase 79 U/L (40-110); Anion Gap 11 mmol/L (10-20); BUN (Urea Nitrogen) 16 mg/dL (9.8-20.1); Bilirubin, Total 0.3 mg/dL (0.2-1.2); Calc. Creatinine Clearance 130 mL/min (70-130); Calcium 8.6 mg/dL (7.8-10.44); Carbon Dioxide 25 mmol/L (23-31); Chloride 104 mmol/L (98-107); Glucose 187 mg/dL (80-115); Potassium 3.7 mmol/L (3.5-5.1); Protein, Total 6.1 g/dL (5.8-8.1); Sodium 136 mmol/L (136-145)
[2020-03-30 10:10] VITALS: BP 155/69; TEMP 96.6
[2020-03-30] MEDS: Gabapentin 300 MG CAP PO SCH (10:11)
[2020-03-30] MEDS: Cholecalciferol (Vitamin D3) 400 UNITS TAB PO SCH (10:11)
[2020-03-30] MEDS: Zinc Sulfate 220 MG CAP PO SCH (10:12)
[2020-03-30] MEDS: Ascorbic Acid 500 mg Chewable Tablet PO SCH (10:12)
[2020-03-30] MEDS: traMADol HCl 50 MG TAB PO SCH (10:12)
[2020-03-30] MEDS: Montelukast Sodium 10 mg Tablet PO SCH (10:13)
[2020-03-30] MEDS: Enoxaparin Sodium 40 MG/0.4 ML SYRINGE SC SCH (10:13)
[2020-03-30] MEDS: Amitriptyline HCl 25 MG TAB PO SCH (10:13)
[2020-03-30] MEDS: Lisinopril 20 MG TAB PO SCH (10:13)
--- NOTE | 2020-03-30 14:58 | PDOC.HOSPP ---
- Subjective Encounter Date: 03/30/20 Encounter Time: 11:45 - Objective Vital Signs & Weight: Vital Signs (12 hours) Temp Pulse Resp BP Pulse Ox 03/30/20 08:00 96.6 F L 78 17 155/69 H 97 03/30/20 04:00 98 F 77 19 167/72 H 92 L Weight Admit Weight 242 lb 5 oz Weight 242 lb 2 oz I&O: 03/29/20 03/30/20 03/31/20 06:59 06:59 06:59 Intake Total 240 1040 Output Total 625 575 Balance -385 465 Result Diagrams: 03/30/20 03:57 03/30/20 03:57 Additional Labs: Accuchecks 03/30/20 03/30/20 03/29/20 10:38 05:32 16:59 POC Glucose 138 H 150 H 162 H Hospitalist Exam Vitals: Vital Signs (12 hours) Temp Pulse Resp BP Pulse Ox 03/30/20 08:00 96.6 F L 78 17 155/69 H 97 03/30/20 04:00 98 F 77 19 167/72 H 92 L Weight Admit Weight 242 lb 5 oz Weight 242 lb 2 oz Hosp A/P (1) Acute hypercapnic respiratory failure Code(s): J96.02 - ACUTE RESPIRATORY FAILURE WITH HYPERCAPNIA Status: Acute (2) Pneumonia Code(s): J18.9 - PNEUMONIA, UNSPECIFIED ORGANISM Status: Acute (3) COPD (chronic obstructive pulmonary disease) Status: Acute (4) Diabetes Code(s): E11.9 - TYPE 2 DIABETES MELLITUS WITHOUT COMPLICATIONS Status: Acute (5) Hypertension Code(s): I10 - ESSENTIAL (PRIMARY) HYPERTENSION Status: Acute - Plan Given 1 dose of Lasix. We will continue IV antibiotics. We will get physical therapy. We will stop antibiotics. We will also get echocardiogram. Patient has a history of smoking she quit about a month ago. She smokes about 2 or 3 packs a day. We will check inflammatory markers. Pulmonology consulted. Spoke with oncology who recommended follow-up as an outpatient for the findings on the CAT scan. 03/29 will switch abx to levaquin and monitor her for one more night. she does not want to go to snf. echo pending. if ok stable will discharge pt home in am.
--- NOTE | 2020-03-30 15:00 | PDOC.DS.DS ---
Provider Date of Admission: 03/27/20 16:26 Date of Discharge: 03/30/20 Admitting Provider: Myke Frazier Consultations: Oncology, Pulmonary Primary Care Physician: Lyndsey Sweeney MD Course Hospital Course: Is a 64-year-old male who initially presented to the hospital with change in mental status. Patient left AGAINST MEDICAL ADVICE from [facility]. She does use home oxygen. Initially she was put on broad-spectrum antibiotics. She did have a CT chest and abdomen pelvis CT. patient's CT chest abdomen pelvis indicated extensive interstitial alveolar opacity however her Covid test was negative. She was seen by product distribution specialist who did not think this was pneumonia. She also was noted to have a fatty lesion associated with the lateral aspect of the left psoas muscle which has slightly grown. Oncology was consulted who recommended outpatient follow-up. This was communicated well with the patient and emphasized to follow-up as an outpatient and concerns for possible liposarcoma. Patient's IV antibiotics were switched to oral she did well without any problems. She was discharged home Patient had an echocardiogram which indicated an EF 55 to 60% that indicated diastolic dysfunction. Patient did not want any penitentiary facility she wanted to go home with her family. She does have oxygen at home. I have asked her to follow-up with pulmonology and oncology. Resuscitation Status: 03/27/20 17:35 Resuscitation Status Routine Resuscitation Status: FULL: Full Resuscitation Lab Results: 03/30/20 03:57 03/30/20 03:57 Abnormal Lab Results - Last 48 hrs 03/29/20 08:11: Albumin 3.1 L, Albumin/Globulin Ratio 0.9 L 03/29/20 08:11: WBC 12.0 H, RBC 3.64 L, Hgb 8.5 L, Hct 27.0 L, MCV 74.2 L, MCH 23.5 L, MCHC 31.6 L, RDW 19.8 H, Neutrophils % 88.2 H, Lymphocytes % 7.2 L, Neutrophils # 10.6 H, Lymphocytes # 0.9 L 03/30/20 03:57: Albumin 3.1 L, Albumin/Globulin Ratio 1.0 L 03/30/20 03:57: WBC 11.4 H, RBC 3.78 L, Hgb 8.3 L, Hct 27.3 L, MCV 72.2 L, MCH 22.0 L, MCHC 30.4 L, RDW 19.9 H, Neutrophils % 85.5 H, Lymphocytes % 10.0 L, Neutrophils # 9.7 H, Lymphocytes # 1.1 L Microbiology - Entire Visit 03/28/20 05:40 Urine Straight Catheter Urine Culture - Final Yeast species Yeast species#2 03/27/20 12:12 Venous blood - Right Hand Blood Culture - Preliminary Specimen has been received and culture in progress. No Growth to date. 03/27/20 12:08 Venous blood - Right Hand Blood Culture - Preliminary Specimen has been received and culture in progress. No Growth to date. Vitals: Vital Signs (12 hours) Temp Pulse Resp BP Pulse Ox 03/30/20 08:00 96.6 F L 78 17 155/69 H 97 03/30/20 04:00 98 F 77 19 167/72 H 92 L Weight Admit Weight 242 lb 5 oz Weight 242 lb 2 oz Physical Exam: The patient was seen and examined on the day of discharge. Problem (1) Acute hypercapnic respiratory failure Code(s): J96.02 - ACUTE RESPIRATORY FAILURE WITH HYPERCAPNIA Status: Acute (2) Pneumonia Code(s): J18.9 - PNEUMONIA, UNSPECIFIED ORGANISM Status: Acute (3) COPD (chronic obstructive pulmonary disease) Status: Acute (4) Diabetes Code(s): E11.9 - TYPE 2 DIABETES MELLITUS WITHOUT COMPLICATIONS Status: Acute (5) Hypertension Code(s): I10 - ESSENTIAL (PRIMARY) HYPERTENSION Status: Acute Plan Prescriptions: Levofloxacin [Levaquin] 750 mg PO 0600 #5 tab Home Medications: Medication Instructions Recorded Confirmed Type Albuterol Sulfate [Proair HFA] 2 puff INH Q4HR PRN 12/12/18 03/28/20 History Amitriptyline HCl 25 mg PO DAILY 12/12/18 03/28/20 History Baclofen 10 mg PO BID 12/12/18 03/28/20 History Furosemide 40 mg PO DAILY 12/12/18 03/28/20 History Lisinopril 40 mg PO DAILY 12/12/18 03/28/20 History Montelukast Sodium 10 mg PO DAILY 12/12/18 03/28/20 History Omeprazole 40 mg PO DAILY 12/12/18 03/28/20 History Sertraline HCl 200 mg PO DAILY 12/12/18 03/28/20 History Simvastatin [Zocor] 20 mg PO DAILY 12/12/18 03/28/20 History traMADol HCl [Tramadol HCl] 50 mg PO BID 12/12/18 03/28/20 History Gabapentin 1,200 mg PO TID 12/13/18 03/28/20 History Fluticasone Propionate [Flonase 50 mcg NASAL DAILY PRN 03/28/20 03/28/20 History Nasal Soldier] Tiotropium [place] [Spiriva] 18 mcg INH BID PRN 03/28/20 03/28/20 History Levofloxacin [Levaquin] 750 mg PO 0600 #5 tab 03/30/20 Rx Allergies: No Known Allergies Allergy (Verified 03/28/20 00:26) Discharge Instructions:: Lucent focus with soft tissue attenuation left calvarium, you will need to foll ow-up with your primary care doctor for further imaging. Activity:: Activity as Tolerated Nourishment:: Heart Healthy Diet Referrals: Lakeshia Rendon MD [Active] - PROVIDER,NO PCP [MD Not on Staff] - Jean Mathews MD [Active] - Disposition: HOME Quality CORE MEASURES:: N/A
--- NOTE | 2020-04-03 12:14 | PQF ---
CLINICAL DOCUMENTATION CLARIFICATION FORM: Dear : Mireya Hawley MD Date / Time: 04/03/2020 Please exercise your independent, professional judgment in responding to the clarification form. Clinical indicators are provided on the bottom of this form for your review Please check appropriate box(es) to clarify if the following diagnosis has been ruled in our ruled out: [ ] Ruled in COVID-19 [ ] Continue to treat [ ] Resolved [ x] Ruled out COVID-19 [ ] Improving [ ] Cannot rule out diagnosis [ ] Other diagnosis (Please specify if any) [ ] Unable to determine In addition, please specify: Present on Admission (POA): [ ] Yes [ ] No [ x] Unable to determine Physician Signature: Date/Time: For continuity of documentation, please document condition throughout progress notes and discharge summary. Thank You. To be completed by CDI/Coding staff for physician review: Present Clinical Indicators - Signs / Symptoms / Labs Results and Location in Medical Record [x] Patient also appeared to have COVID pneumonia ED provider report on 03/27 [x] Sepsis likely secondary to COVID pneumonia H&P on 03/27 [x] Sepsis 19 pneumonia H&P on 03/27 [x] Copd exacerbation secondary to PNA 19 H&P on 03/27 [x] Chest CT showed a pattern concerning for covid19 H&P on 03/27 [x] Her covid test was negative Discharge summary on 03/30 Present Risk Factors Results and Location in Medical Record [x] COPD H&P on 03/27 [x] History of smoking Hospitalist progress notes on 03/29 Present Treatments Results and Location in Medical Record [x] Isolation precautions H&P on 03/27 [x] Vancomycin 1.5gm IV Medication on 03/27 [x] Decadron 6mg IV Medication on 03/28,03/29 [ ] CDS/[employer] Signature: AAS Phone #: Date/Time: 04/03/2020 This is a permanent part of the Medical Record [facility]
--- NOTE | 2020-04-06 22:19 | EKG ---
Test Reason : Blood Pressure : / mmHG Vent. Rate : 095 BPM Atrial Rate : 095 BPM P-R Int : 174 ms QRS Dur : 090 ms QT Int : 384 ms P-R-T Axes : 005 037 052 degrees QTc Int : 482 ms Normal sinus rhythm Normal ECG Confirmed by JUDITH REYNOLDS DO ([id number]), editor & co founder SADIQ VASQUEZ ([id number]) on 04/06/2020 10:18:58 PM Referred By: Confirmed By:JUDITH REYNOLDS DO
== END 2020-03-30 13:38 | disposition home or self-care (01) | DRG 871 ==
LOC: ERS 11:28 → ERHOLD 16:26 → 2NO 23:32
PROVIDERS: ADMIT Internal Medicine; ATTEND Internal Medicine
PROC: 8E0ZXY6 Isolation (ICD-10-PCS; principal; 2020-03-27)
PROC: 3E033XZ Introduction of Vasopressor into Peripheral Vein, Percutaneous Approach (ICD-10-PCS; 2020-03-27)
DX: A41.9 Sepsis, unspecified organism (principal); R65.21 Severe sepsis with septic shock; J96.01 Acute respiratory failure with hypoxia; C49.9 Malignant neoplasm of connective and soft tissue, unspecified; N30.00 Acute cystitis without hematuria; J44.1 Chronic obstructive pulmonary disease with (acute) exacerbation; N17.9 Acute kidney failure, unspecified; Z68.41 Body mass index [BMI] 40.0-44.9, adult; E87.2 Acidosis; J81.1 Chronic pulmonary edema; J98.11 Atelectasis; E11.9 Type 2 diabetes mellitus without complications; G89.29 Other chronic pain; I10 Essential (primary) hypertension; J44.9 Chronic obstructive pulmonary disease, unspecified; F32.9 Major depressive disorder, single episode, unspecified; E66.01 Morbid (severe) obesity due to excess calories; E03.9 Hypothyroidism, unspecified; G47.30 Sleep apnea, unspecified; D64.9 Anemia, unspecified; E88.09 Other disorders of plasma-protein metabolism, not elsewhere classified; Z79.899 Other long term (current) drug therapy; Z87.891 Personal history of nicotine dependence; Z79.51 Long term (current) use of inhaled steroids
CPT/HCPCS: 36415; 36416; 36600; 51701; 70450; 71045; 71250; 74177; 80053; 80202; 80306; 80307; 81003; 81015; 82805; 83605; 83690; 83880; 84145; 84443; 84484; 85007; 85025; 85027; 87040; 87086; 87635; 93005; 93306; 94640; 96365; 96375; J0692; J1100; J1650; J1815; J1940; J2310; J3370; J3490; U0003; U0005